=== PATIENT | female | born 1985 | race Asian ===

== ENCOUNTER 2021-06-25 14:24 | Emergency (ER) | payer OTHER ==
[~2021-06-25] VITALS: Ht 157.5 cm; Wt 60.8 kg
[2021-06-25 17:37] LABS: BASO % 0.3 % (0.0-1.0); EOS # 0.1 10^3/uL (0.0-0.5); EOS % 1.4 % (0.0-3.0); HEMOGLOBIN 12.2 g/dl (12.0-15.5); LYMPH # 1.9 10^3/uL (1.5-5.0); MEAN CORPUSCULAR HEMOGLOBIN 28.7 pg (27.0-33.0); MEAN CORPUSCULAR HGB CONC 32.1 g/dl (32.0-36.5); MEAN CORPUSCULAR VOLUME 89.4 fl (80.0-96.0); MONO # 0.6 10^3/uL (0.0-0.8); MONO % 8.7 % (2.0-8.0); NEUTROPHILS # 4.4 10^3/uL (1.5-8.5); NEUTROPHILS % 61.9 % (36.0-66.0); PLATELET COUNT, AUTOMATED 236 10^3/uL (150-450); RED BLOOD COUNT 4.25 10^6/uL (4.00-5.40); WHITE BLOOD COUNT 7.2 10^3/uL (4.0-10.0)
[2021-06-25 17:56] LABS: BLOOD UREA NITROGEN 7 MG/DL (7-18); CALCIUM LEVEL 8.9 MG/DL (8.5-10.1); CARBON DIOXIDE LEVEL 26 MEQ/L (21-32); CHLORIDE LEVEL 107 MEQ/L (98-107); CREATININE FOR GFR 0.58 MG/DL (0.55-1.30); GLOMERULAR FILTRATION RATE > 60.0 (>60); GLUCOSE, FASTING 91 MG/DL (70-100); HCG, SERUM QUANTITATIVE 19476 MIU/ML; POTASSIUM SERUM 3.9 MEQ/L (3.5-5.1); SODIUM LEVEL 137 MEQ/L (136-145)
[2021-06-25 19:22] LABS: APPEARANCE, URINE HAZY (CLEAR); BACTERIA, URINE AUTO NEGATIVE (NEGATIVE); BILIRUBIN, URINE AUTO NEGATIVE (NEGATIVE); BLOOD, URINE BLOOD NEGATIVE (NEGATIVE); COLOR, URINE YELLOW (YELLOW); GLUCOSE, URINE (UA) AUTO NEGATIVE (NEGATIVE); KETONE, URINE AUTO TRACE mg/dL (NEGATIVE); LEUKOCYTE ESTERASE, URINE AUTO 3+ (NEGATIVE); NITRITE, URINE AUTO NEGATIVE (NEGATIVE); PROTEIN, URINE AUTO NEGATIVE (NEGATIVE); RBC, URINE AUTO 2 /HPF (0-3); SPECIFIC GRAVITY URINE AUTO 1.008 (1.002-1.035); SQUAMOUS EPITHELIAL CELL UR AU 15 /HPF (0-6); UROBILINOGEN, URINE AUTO 0.2 mg/dL (0.0-2.0); WBC, URINE AUTO 10 /HPF (0-3)
[2021-06-25 20:06] VITALS: BP 115/64
== END 2021-06-25 20:07 | disposition home or self-care (01) ==
LOC: M ED 14:24
DX: O99.891 Other specified diseases and conditions complicating pregnancy (principal); R10.2 Pelvic and perineal pain; Z3A.01 Less than 8 weeks gestation of pregnancy

== ENCOUNTER 2022-02-01 16:33 | Outpatient (CLI) | payer OTHER ==
[~2022-02-01] VITALS: Ht 157.5 cm; Wt 73.8 kg
[2022-02-01] MEDS ORDERED: FERR325T3 PO (17:09)
[2022-02-01] MEDS ORDERED: VITA500C24 PO (17:09)
[2022-02-01] MEDS ORDERED: PRENTAB9 PO (17:09)
[2022-02-01] MEDS ORDERED: HOME MED LIST COMPLETE! XX SCH (17:10)
[2022-02-01 17:12] VITALS: BP 118/69
[2022-02-01 17:57] VITALS: BP 121/77
== END 2022-02-01 18:03 | disposition home or self-care (01) ==
LOC: M LDO 16:33
PROVIDERS: ATTEND Obstetrics & Gynecology
DX: O47.1 False labor at or after 37 completed weeks of gestation (principal); Z3A.38 38 weeks gestation of pregnancy; O99.013 Anemia complicating pregnancy, third trimester; D64.9 Anemia, unspecified; Z86.16 Personal history of COVID-19
CPT/HCPCS: 59025; G0463

== ENCOUNTER 2022-02-13 06:43 | Outpatient (CLI) | payer OTHER ==
[~2022-02-13] VITALS: Ht 157.5 cm; Wt 73.6 kg
[~2022-02-13 06:43] MED LIST: FERR325T3 PO; PRENTAB9 PO; VITA500C24 PO
== END 2022-02-13 10:02 | disposition home or self-care (01) ==
LOC: M LDO 06:43
PROVIDERS: ATTEND Obstetrics & Gynecology
DX: O47.1 False labor at or after 37 completed weeks of gestation (principal); Z3A.39 39 weeks gestation of pregnancy
CPT/HCPCS: 59025; G0378; G0463

== ENCOUNTER 2022-02-19 02:10 | Inpatient (IN) | payer OTHER ==
[~2022-02-19] VITALS: Ht 157.5 cm; Wt 74.5 kg
[2022-02-19] VITALS (67 sets, daily range): BP systolic 83–154; BP diastolic 46–94
[~2022-02-19 02:10] MED LIST changes: +UNRESOLVED CLARIFICATION ENTRY XX SCH
[2022-02-19] MEDS ORDERED: OXYTOCIN DRIP 30 UNITS in IV 1 EA IV SCH ×2 (03:10→23:05)
[2022-02-19] MEDS ORDERED: TRANEXAMIC ACID INJection 1,000 MG in NS 100 ML IV PRN (03:10)
[2022-02-19] MEDS ORDERED: METHYLERGONOVINE MALEATE 0.2 MG/ML VIAL (J2210) IM PRN (03:10)
[2022-02-19] MEDS ORDERED: LR 1,000 ML IV SCH (03:10)
[2022-02-19] MEDS ORDERED: LIDOCAINE 1% MDV 20ML VIAL INFIL PRN (03:10)
[2022-02-19] MEDS ORDERED: OXYTOCIN DRIP 30 UNITS in IV 1 EA IV PRN ×4 (03:10)
[2022-02-19 03:31] LABS: HEMATOCRIT 33.9 % (36.0-47.0); HEMOGLOBIN 10.3 g/dl (12.0-15.5); MEAN CORPUSCULAR HEMOGLOBIN 25.8 pg (27.0-33.0); MEAN CORPUSCULAR HGB CONC 30.4 g/dl (32.0-36.5); MEAN CORPUSCULAR VOLUME 84.8 fl (80.0-96.0); PLATELET COUNT, AUTOMATED 283 10^3/uL (150-450)
[2022-02-19] MEDS ORDERED: PROMETHAZINE 25MG/ML 1ML VIAL IM ONE (04:20)
[2022-02-19] MEDS ORDERED: BUTORPHANOL 2 MG/ML 1ML VIAL IV ONE (04:20)
[2022-02-19] MEDS ORDERED: PROMETHAZINE 25MG/ML 1ML VIAL IV ONE (04:40)
[2022-02-19] MEDS ORDERED: LR 500 ML IV PRN (10:55)
[2022-02-19] MEDS ORDERED: ONDANSETRON 4MG 2ML VIAL IV PRN ×2 (10:55→23:50)
[2022-02-19] MEDS ORDERED: EPIDURAL/PCA KEYS XX PRN (10:55)
[2022-02-19] MEDS ORDERED: NALOXONE INJ 0.4MG/1ML VIAL IV PRN (10:55)
[2022-02-19] MEDS ORDERED: FENTANYL/ROPIVACAINE/NACL BAG 100 ML EPIDURAL SCH (10:55)
[2022-02-19] MEDS ORDERED: diphenhydrAMINE 50MG/ML VIAL IV PRN (10:55)
[2022-02-19] MEDS ORDERED: FENTANYL 2MCG/ML ROPIVACAINE 0.2% IN 0.9% NACL 100ML IVBAG As Ordered ONE (11:03)
[2022-02-19] MEDS: ePHEDrine SULFATE 25 MG/5 ML(5MG/ML) SYRINGE IVP PRN ×3 (12:16→15:56)
[2022-02-19] MEDS ORDERED: ePHEDrine INJ 50MG/ML 1ML VIAL IV PRN (16:15)
[2022-02-19 22:51] LABS: CORD GAS ABE A -10.2; CORD GAS ABE V -11.2; CORD GAS HCO3 A 19.7 MEQ/L; CORD GAS HCO3 V 17.4 MEQ/L; CORD GAS O2 SAT A 16.2 %; CORD GAS O2 SAT V 28.4 %; CORD GAS PCO2 A 60.4 mmHg; CORD GAS PH A 7.131 UNITS; CORD GAS PH V 7.168 UNITS; CORD GAS PO2 A 12.9 mmHg; CORD GAS PO2 V 17.4 mmHg; CORD GAS SBC A 14.8 MEQ/L; CORD GAS SBC V 14.4 MEQ/L; CORD GAS TCO2 A 21.5 MEQ/L; CORD GAS TCO2 V 18.9 MEQ/L
[2022-02-19] MEDS ORDERED: DIBUCAINE 1% OINTMENT 30GM TOP PRN (23:05)
[2022-02-19] MEDS ORDERED: MOM 30ML SUSPENSION UDC PO PRN (23:05)
[2022-02-19] MEDS ORDERED: RHOGAM 300MCG (1500IU) INJ IM SCH (23:05)
[2022-02-19] MEDS ORDERED: METHYLERGONOVINE MALEATE 0.2 MG TAB PO PRN (23:05)
[2022-02-19] MEDS ORDERED: DOCUSATE SODIUM 100MG CAPSULE PO PRN (23:05)
[2022-02-20 00:04] VITALS: BP 122/56
[2022-02-20] MEDS: IBUPROFEN 800 MG TAB PO PRN ×2 (00:14→16:34)
[2022-02-20] MEDS: ACETAMINOPHEN 500 MG TAB PO PRN ×2 (00:14→19:58)
[2022-02-20 00:42] VITALS: BP 106/59
[2022-02-20] MEDS ORDERED: oxyCODONE 5MG TAB As Ordered ONE (00:54)
[2022-02-20] MEDS ORDERED: oxyCODONE 5MG TAB PO ONE (01:00)
[2022-02-20] MEDS: PRENATAL VITAMINS CHEWABLE TABLET PO SCH (09:00)
[2022-02-20 18:00] VITALS: BP 103/50
[2022-02-21] MEDS: IBUPROFEN 800 MG TAB PO PRN (04:46)
[2022-02-21 06:00] VITALS: BP 101/51
[2022-02-21] MEDS: PRENATAL VITAMINS CHEWABLE TABLET PO SCH (08:34)
[2022-02-21] MEDS ORDERED: MEASLES,MUMPS,RUBELLA VACCINE INJ (MMR-II) SC.IMMUN ONE (09:00)
== END 2022-02-21 11:40 | disposition home or self-care (01) | DRG 807 ==
LOC: M LDO 02:10 → M LDI 03:10 → M OBS 02-20 02:10
PROVIDERS: ADMIT Obstetrics & Gynecology; ATTEND Obstetrics & Gynecology
PROC: 10D07Z6 Extraction of Products of Conception, Vacuum, Via Natural or Artificial Opening (ICD-10-PCS; principal; 2022-02-19)
PROC: 0KQM0ZZ Repair Perineum Muscle, Open Approach (ICD-10-PCS; 2022-02-19)
DX: O48.0 Post-term pregnancy (principal); Z37.0 Single live birth; Z3A.40 40 weeks gestation of pregnancy; O76 Abnormality in fetal heart rate and rhythm complicating labor and delivery; O70.1 Second degree perineal laceration during delivery